=== PATIENT | male | born 1990 | race Caucasian/White ===

== ENCOUNTER 2016-07-18 17:33 | Emergency (ER) | payer MEDICAID ==
[~2016-07-18] VITALS: Ht 182.9 cm; Wt 54.4 kg
[2016-07-18 17:35] VITALS: BP 134/89
--- NOTE | 2016-07-18 17:44 | Emergency Room Report ---
History of Present Illness General Chief Complaint: General Complaint Source: Patient Present Illness HPI The patient is a 25-year-old male presenting for possible heroin withdrawal. The patient states that he last used heroin today. The patient also admits to recent use of acid and mushrooms. The patient denies any symptoms including N, V, F, chills, pain, LAM, dizziness, blurred vision, CP, SOB Allergies: Coded Allergies: No Known Allergies (Unverified , 07/18/16) Patient History Past Medical History: see triage record Pertinent Family History: none Social History: Reports: alcohol use, drug use - marijuana, heroin, mushrooms, acid Reviewed Nursing Documentation: PMH: Agreed, PSxH: Agreed Nursing Documentation-PMH Past Medical History: No Stated History Hx Cardiac Problems: No Review of Systems All Other Systems: negative except mentioned in HPI Physical Exam Vital Signs Date Time Temp Pulse Resp B/P Pulse Ox O2 Delivery O2 Flow Rate FiO2 07/18/16 17:29 98.8 87 20 134/89 98 Room Air Sp02 EP Interpretation: reviewed, normal General Appearance: no apparent distress, alert, GCS 15, non-toxic Head: normocephalic, atraumatic Eyes: bilateral eye PERRL, bilateral eye normal inspection, bilateral eye other - dilated ENT: hearing grossly normal, normal pharynx, no angioedema, normal voice Neck: full range of motion, supple/symm/no masses Respiratory: chest non-tender, lungs clear, normal breath sounds, no accessory muscle use, no wheezing, speaking full sentences Cardiovascular #1: regular rate, rhythm, no edema Gastrointestinal: normal bowel sounds, non tender, soft, non-distended, no guarding, no rebound Musculoskeletal: back normal, gait/station normal, normal range of motion, non- tender Neurologic: alert, oriented x3, responsive, motor strength/tone normal, sensory intact, speech normal Psychiatric: judgement/insight normal, memory normal, mood/affect normal, no suicidal/homicidal ideation Suicide Risk Assessment: Suicidal Ideation: No Had intent to initiate attempt: No Pt's plan for suicide attempt: No Has means to complete attempt: No Skin: normal color, no rash, warm/dry, well hydrated Lymphatic: no adenopathy Medical Decision Making PA Attestation Dr. Khalil is my supervising physician. Patient management was discussed with my supervising physician Diagnostic Impression: Primary Impression: Drug abuse ER Course The patient is a 25-year-old male presenting for possible heroin withdrawal. Differential diagnoses considered but not limited to psychosis, drug abuse, alcohol intoxication PE: vitals WNL. NAD The patient is resting comfortably. No apparent distress. PERRL. Dilated. Lungs CTA bilat. RRR. No tremors. Skin is warm and dry. The pt is given time to rest in the ER. Pt is counseled to stop using drugs. ER precautions given Last Vital Signs Date Time Temp Pulse Resp B/P Pulse Ox O2 Delivery O2 Flow Rate FiO2 07/18/16 17:29 98.8 87 20 134/89 98 Room Air Status: improved Disposition: HOME, SELF-CARE Condition: Improved GINETTE ALMANZAR Jul 18, 2016 17:44
[2016-07-18] MEDS ORDERED: Haloperidol 5mg/ml Inj IM ONE (18:45)
[2016-07-18] MEDS ORDERED: DiphenhydrAMINE 50mg/ml Inj IM ONE (18:45)
[2016-07-18] MEDS ORDERED: LORazepam Inj 2mg/ml 1ml IM ONE (18:45)
[2016-07-18 22:30] VITALS: BP 128/77
[2016-07-18 22:35] VITALS: BP 128/77
== END 2016-07-18 22:35 | disposition home or self-care (01) ==
LOC: EDBD 17:33 → EMR 17:47
DX: F19.10 Other psychoactive substance abuse, uncomplicated (principal)
CPT/HCPCS: 99283